=== PATIENT | female | born 1995 | race Caucasian/White ===

== ENCOUNTER 2019-09-22 02:50 | Emergency (ER) | payer OTHER ==
[~2019-09-22] VITALS: Ht 157.5 cm; Wt 55.3 kg
[~2019-09-22 02:50] MED LIST: BENADRYL25 MG PO; CLEOCIN HCL300 MG PO; EPIPEN 2-P0.3 MG/0.3 IM; IBUPROFEN 600600 M1 PO; PREDNISONE50 MG PO
[2019-09-22 03:01] LABS: URINE BILIRUBIN NEGATIVE (Negative); URINE BLOOD 3+ (Negative); URINE CLARITY CLEAR; URINE COLOR YELLOW; URINE GLUCOSE-RANDOM NEGATIVE (Negative); URINE KETONES NEGATIVE (Negative); URINE PROTEIN 2+ (Negative); URINE UROBILINOGEN 0.2 E.U./dl (0.2-1.0)
[2019-09-22] MEDS ORDERED: [UNRECOGNIZED DRUG - OTHER] (03:01)
[2019-09-22 03:05] LABS: URINE LEUKOCYTES-REFLEX 2+ (Negative); URINE NITRITE-REFLEX POSITIVE (Negative)
[2019-09-22 03:09] LABS: SQUAMOUS 0-3 Few /LPF (0-3)
[2019-09-22 03:10] LABS: CASTS None Seen /LPF (None Seen); CRYSTALS None Seen /LPF (None Seen); URINE RBC >20 Many /HPF (0-2); URINE WBC-REFLEX 0-5 Rare /HPF (0-5)
[2019-09-22] MEDS ORDERED: BACTRIM DS TAB1 EACH PO (03:21)
[2019-09-22] MEDS ORDERED: PHENERGAN 25 MG25 M1 PO (03:21)
[2019-09-22 03:46] VITALS: BP 117/87
== END 2019-09-22 03:47 | disposition home or self-care (01) ==
LOC: M.ERS 02:50
PROVIDERS: Emergency Medicine
DX: N39.0 Urinary tract infection, site not specified (principal)